=== PATIENT | male | born 2000 | race Caucasian/White ===

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

== ENCOUNTER 2022-02-03 12:58 | Day surgery (SDC) | payer BC ==
[~2022-02-03] VITALS: Ht 188 cm; Wt 85.9 kg
[~2022-02-03 12:58] MED LIST: CEPHALEXIN500 M1 PO
[2022-02-03] MEDS ORDERED: ADVIL200 MG PO (13:34)
[2022-02-03 13:55] VITALS: BP 163/98; PULSE 86; TEMP 98.4
[2022-02-03 15:16] VITALS: BP 129/66; PULSE 77
--- NOTE | 2022-02-03 15:29 | NUR ---
PATIENT ALERT AND ORIENTED, NO REPORTS OF PAIN. FAMILY AT SIDE. SEE MERGE FOR TELEPHONE TECHNICIAN DOCUMENTATION WELL MEDICATION ADMINISTRATION. CONSENT VERIFIED
[2022-02-03 15:49] VITALS: BP 134/76; PULSE 79
[2022-02-03 16:00] VITALS: BP 122/73; PULSE 67
[2022-02-03 16:15] VITALS: BP 133/98; PULSE 72
--- NOTE | 2022-02-03 16:55 | NUR ---
Discharge education given to pt and dad, pt verbalizes understanding. pt wheelchaired to exit.
== END 2022-02-03 17:12 ==
LOC: COL.CAR 12:58
DX: I47.2 Ventricular tachycardia (principal)
CPT/HCPCS: J2250; J3010; J3370